=== PATIENT | male | born 1940 | race Caucasian/White ===

== ENCOUNTER 2018-12-12 00:58 | Emergency (ER) | payer OTHER, MEDICARE ==
[2018-12-12 01:59] LABS: Protime INR 1.13
[2018-12-12 02:00] LABS: Absolute Lymphocytes (CBC) 0.9 K/uL (0.7-4.9); Basophils % 0.8 % (0-1.3); Hematocrit 42.7 % (39.6-49.0); Lymphocytes % 10.9 % (15.3-44.8); MPV 8.5 fL (7.6-11.3); RBC Red Blood Cell Count 4.87 M/uL (4.33-5.43)
[2018-12-12 02:12] LABS: ALT/SGPT 13 U/L (12-78); AST/SGOT 10 U/L (15-37); Albumin 3.6 g/dL (3.4-5.0); Alkaline Phosphatase 87 U/L (45-117); BUN Blood Urea Nitrogen 21 mg/dL (7-18); Bicarbonate 29 mmol/L (21-32); Bilirubin Direct 0.2 mg/dL (0-0.2); Bilirubin Total 0.5 mg/dL (0.2-1.0); Glucose Level 101 mg/dL (74-106); Magnesium 2.3 mg/dL (1.8-2.4); NT PRO-BNP 811 pg/mL (<450); Potassium 4.5 mmol/L (3.5-5.1); Protein, Total 6.8 g/dL (6.4-8.2); Sodium Level 148 mmol/L (136-145); Troponin (Emerg Dept Use Only) < 0.02 ng/mL (0.0-0.045)
[2018-12-12] MEDS ORDERED: NA CHLORIDE 0.9% 1,000 ML ONE (02:18)
--- NOTE | 2018-12-12 02:24 | ER ---
Nurse's Notes [facility] Name: Quan Calixto Jr Age: 78 yrs Sex: Male : 1940 Arrival Date: 12/12/2018 Time: 01:02 Bed 3 Private MD: Diagnosis: Dehydration;Dementia in other diseases classified elsewhere Presentation: 12/12 01:00 Presenting complaint: EMS states: patient sat on the grass outside his house, flag down rr5 [place] [employer] we were on the next block for the lift assist. PD said the patient told them his is inside the house need medical emergency. the house is locked PD break in the house and they did not found anyone. they found out his is admitted here in the hospital right now. patient is altered oriented to himself known case of Alzheimer's and dementia. 01:00 Transition of care: patient was not received from another setting of care. Onset of rr5 symptoms was December 12, 2018. Risk Assessment: Do you want to hurt yourself or someone else? Patient reports no desire to harm self or others. Initial Sepsis Screen: Does the patient meet any 2 criteria? No. Patient's initial sepsis screen is negative. Does the patient have a suspected source of infection? No. Patient's initial sepsis screen is negative. Note labetalol given for the BP 224/110 then rechecked 150/84mmHg. Care prior to arrival: Medication(s) given: labetalol 10 mg/IV. 01:00 Method Of Arrival: EMS: [facility] rr5 01:00 Acuity: SIDRA 2 rr5 Historical: - Allergies: 01:00 Unable to obtain; rr5 - Home Meds: 01:00 Unable to obtain [Active]; rr5 - PMHx: 01:00 Unable to obtain; rr5 - PSHx: 01:00 Unable to obtain; rr5 - Immunization history:: Adult Immunizations unknown. - Social history:: Smoking status: unknown. - Ebola Screening: : Unable to complete screening because. Screenin:10 VAN Screening: Arm Drift: Patient shows no arm weakness. Patient is VAN negative. rr5 01:27 Abuse screen: Denies threats or abuse. Denies injuries from another. Nutritional rr5 screening: No deficits noted. Tuberculosis screening: No symptoms or risk factors identified. Fall Risk Secondary diagnosis (15 points) Alzheimer's, dementia, IV access (20 points). Mental Status- Overestimates/Forgets Limitations (15 pts.). Total Mckenzie Fall Scale indicates High Risk Score (45 or more points). Fall prevention measures have been instituted. Side Rails Up X 2 Placed Close to Nursing Station Frequent Obs/Assessments Occuring As available patient and family educated on Fall Prevention Program and Strategies. Assessment: 01:00 General: Appears in no apparent distress. comfortable, Behavior is calm, cooperative. rr5 Pain: Denies pain. Unable to use pain scale. Neuro: Level of Consciousness is awake, alert, obeys commands, confused, Oriented to person, Communications Consultant are equal bilaterally Moves all extremities. Full function Speech is normal, Facial symmetry appears normal, Pupils are PERRLA. Cardiovascular: Capillary refill < 3 seconds Patient's skin is warm and dry. Respiratory: Airway is patent Respiratory effort is even, unlabored, Respiratory pattern is regular, symmetrical. GI: No signs and/or symptoms were reported involving the gastrointestinal system. : No signs and/or symptoms were reported regarding the genitourinary system. : No signs and/or symptoms were reported regarding the genitourinary system. EENT: No signs and/or symptoms were reported regarding the EENT system. Derm: Skin is intact, Skin temperature is warm. Musculoskeletal: Circulation, motion, and sensation intact. Capillary refill < 3 seconds. 01:20 Reassessment: ED provider talked to patients and informed the patient status. rr5 01:55 Reassessment: Patient appears in no apparent distress at this time. eyes closed rr5 breathing spontaneously at room air. awaiting for result. 02:35 Reassessment: Patient appears in no apparent distress at this time. with order by ED rr5 provider.for discharge after fluid bolus. 03:20 Reassessment: Patient appears in no apparent distress at this time. fluid infusion rr5 consumed and terminated. patient assisted going to his in 2 nd floor via wheelchair. as verbalized by the his this is not the first time happened to him like this. discharge instruction given and explained to without complaints made. Vital Signs: 01:00 BP 157 / 105; Pulse 70; Resp 17; Pulse Ox 100% ; Weight 81.65 kg; rr5 01:00 Temp 97.8; rr5 01:49 BP 140 / 86; Pulse 62; Resp 18; Pulse Ox 100% on R/A; ea 02:32 BP 159 / 90; Pulse 60; Resp 16; Pulse Ox 98% ; rr5 03:23 BP 149 / 75; Pulse 62; Resp 16; Temp 97.9; Pulse Ox 98% ; rr5 Conrad Coma Score: 01:00 Eye Response: spontaneous(4). Verbal Response: confused(4). Motor Response: obeys rr5 commands(6). Total: 14. ED Course: 01:00 Maintain EMS IV. Dressing intact. Good blood return noted. Site clean \T\ dry. Gauge \T\ rr 5 site: G18 at right FA. 01:02 Patient arrived in ED. rr5 01:05 Murali Bernal PA is PHCP. jr8 01:05 Patient has correct armband on for positive identification. Placed in gown. Bed in low rr5 position. Call light in reach. Side rails up X2. playground monitor on. Pulse ox on. NIBP on. 01:06 Star Parham MD is Attending Physician. jr8 01:09 Triage completed. rr5 01:10 Arm band placed on right wrist. EKG completed in triage. Results shown to MD. rr5 01:11 George Lauren, RN is Primary Nurse. rr5 03:23 No provider procedures requiring assistance completed. IV discontinued, intact, rr5 bleeding controlled, No redness/swelling at site. Pressure dressing applied. 06:26 XRAY Chest (1 view) In Process Unspecified. EDMS Administered Medications: 02:23 Drug: NS 0.9% 1000 ml Route: IV; Rate: 1000 ml; Site: right forearm; rr5 03:15 Follow up: Response: No adverse reaction; IV Status: Completed infusion; IV Intake: rr5 1000ml Point of Care Testing: Blood Glucose: 01:15 Blood Glucose: 110 mg/dL; rr5 Ranges: Intake: 03:15 IV: 1000ml; Total: 1000ml. rr5 Outcome: 02:23 Discharge ordered by . jr8 03:23 Discharged to assisted going to his in 2nd floor. rr5 03:23 Condition: stable 03:23 Discharge instructions given to family, Instructed on discharge instructions, follow up and referral plans. Demonstrated understanding of instructions, follow-up care. 03:27 Patient left the ED. rr5 Signatures: Dispatcher [employer] EDMS Murali Bernal PA PA jr8 Ana Paula Saul, RN RN George Villarreal RN RN rr5 Corrections: (The following items were deleted from the chart) 02:33 02:32 BP 159 / 0; Pulse 60bpm; Resp 16bpm; Pulse Ox 98%; rr5 rr5
--- NOTE | 2018-12-12 02:25 | EDPHYS ---
Physician Documentation [facility] Name: Quan Calixto Jr Age: 78 yrs Sex: Male : 1940 Arrival Date: 12/12/2018 Time: 01:02 Bed 3 Private MD: ED Physician Star Parham HPI: 12/12 01:34 This 78 yrs old Male presents to ER via EMS with complaints of Altered Mental jr8 Status. 01:34 Onset: The symptoms/episode began/occurred acutely, today. Possible causes: unknown. jr8 Associated signs and symptoms: The patient has no apparent associated signs or symptoms. Current symptoms: In the emergency department the patient's symptoms are unchanged from the initial presentation. Patient's baseline: unknown. It is unknown whether or not the patient has had similar symptoms in the past. It is unknown whether or not the patient has recently seen a physician. Patient brought in by EMS after police called them out for altered mental status patient. Stated that he has early onset dementia. Patient's currently admitted to this hospital. was contacted and stated that he does have dementia history and has had steady decline as of lately. No one at home to take care of him at this moment. Patient currently alert to person only. Goes between lucid and confused moments but denies any pain, shortness of breath, or any other symptoms . Historical: - Allergies: 01:00 Unable to obtain; rr5 - Home Meds: 01:00 Unable to obtain [Active]; rr5 - PMHx: 01:00 Unable to obtain; rr5 - PSHx: 01:00 Unable to obtain; rr5 - Immunization history:: Adult Immunizations unknown. - Social history:: Smoking status: unknown. - Ebola Screening: : Unable to complete screening because. ROS: 01:34 Eyes: Negative for injury, pain, redness, and discharge, ENT: Negative for injury, jr8 pain, and discharge, Neck: Negative for injury, pain, and swelling, Cardiovascular: Negative for chest pain, palpitations, and edema, Respiratory: Negative for shortness of breath, cough, wheezing, and pleuritic chest pain, Abdomen/GI: Negative for abdominal pain, nausea, vomiting, diarrhea, and constipation, Back: Negative for injury and pain, MS/Extremity: Negative for injury and deformity, Skin: Negative for injury, rash, and discoloration, Neuro: Negative for headache, weakness, numbness, tingling, and seizure. Exam: 01:34 Eyes: Pupils equal round and reactive to light, extra-ocular motions intact. Lids and jr8 lashes normal. Conjunctiva and sclera are non-icteric and not injected. Cornea within normal limits. Periorbital areas with no swelling, redness, or edema. ENT: Nares patent. No nasal discharge, no septal abnormalities noted. Tympanic membranes are normal and external auditory canals are clear. Oropharynx with no redness, swelling, or masses, exudates, or evidence of obstruction, uvula midline. Mucous membranes moist. Neck: Trachea midline, no thyromegaly or masses palpated, and no cervical lymphadenopathy. Supple, full range of motion without nuchal rigidity, or vertebral point tenderness. No Meningismus. Cardiovascular: Regular rate and rhythm with a normal S1 and S2. No gallops, murmurs, or rubs. Normal PMI, no JVD. No pulse deficits. Respiratory: Lungs have equal breath sounds bilaterally, clear to auscultation and percussion. No rales, rhonchi or wheezes noted. No increased work of breathing, no retractions or nasal flaring. Abdomen/GI: Soft, non-tender, with normal bowel sounds. No distension or tympany. No guarding or rebound. No evidence of tenderness throughout. Back: No spinal tenderness. No costovertebral tenderness. Full range of motion. Skin: Warm, dry with normal turgor. Normal color with no rashes, no lesions, and no evidence of cellulitis. MS/ Extremity: Pulses equal, no cyanosis. Neurovascular intact. Full, normal range of motion. Neuro: Awake and alert, GCS 15, oriented to person. Cranial nerves II-XII grossly intact. Motor strength 5/5 in all extremities. Sensory grossly intact. Cerebellar exam normal. Normal gait. Vital Signs: 01:00 BP 157 / 105; Pulse 70; Resp 17; Pulse Ox 100% ; Weight 81.65 kg; rr5 01:00 Temp 97.8; rr5 01:49 BP 140 / 86; Pulse 62; Resp 18; Pulse Ox 100% on R/A; ea 02:32 BP 159 / 90; Pulse 60; Resp 16; Pulse Ox 98% ; rr5 03:23 BP 149 / 75; Pulse 62; Resp 16; Temp 97.9; Pulse Ox 98% ; rr5 [place] Coma Score: 01:00 Eye Response: spontaneous(4). Verbal Response: confused(4). Motor Response: obeys rr5 commands(6). Total: 14. MDM: 01:06 Patient medically screened. [facility] 02:21 Data reviewed: vital signs, nurses notes, lab test result(s), EKG, radiologic studies, [facility] plain films, and as a result, I will discharge patient. Data interpreted: Pulse oximetry: on room air is 100 %. Interpretation: normal. Counseling: I had a detailed discussion with the patient and/or guardian regarding: the historical points, exam findings, and any diagnostic results supporting the discharge/admit diagnosis, lab results, radiology results, the need for outpatient follow up, a family practitioner, to return to the emergency department if symptoms worsen or persist or if there are any questions or concerns that arise at home. Response to treatment: patient is well hydrated. 12/12 01:06 Order name: Basic Metabolic Panel [facility] 12/12 01:06 Order name: CBC with Diff [facility] 12/12 01:06 Order name: LFT's [facility] 12/12 01:06 Order name: Magnesium [facility] 12/12 01:06 Order name: NT PRO-BNP [facility] 12/12 01:06 Order name: PT-INR [facility] 12/12 01:06 Order name: Troponin (emerg Dept Use Only) [facility] 12/12 02:13 Order name: Basic Metabolic Panel; Complete Time: 02:14 EDMS 12/12 02:13 Order name: Liver (Hepatic) Function; Complete Time: 02:14 EDOR 12/12 02:13 Order name: Troponin (Emerg Dept Use Only); Complete Time: 02:14 EDMS 12/12 02:13 Order name: NT PRO-BNP; Complete Time: 02:14 EDOR 12/12 02:13 Order name: Magnesium; Complete Time: 02:14 EDMS 12/12 02:20 Order name: CBC with Automated Diff; Complete Time: 02:21 EDOR 12/12 02:20 Order name: Protime (+INR); Complete Time: 02:21 EDOR 12/12 01:03 Order name: XRAY Chest (1 view) 12/12 01:06 Order name: EKG; Complete Time: 01:12/12 01:06 Order name: Cardiac monitoring; Complete Time: :12/12 01:06 Order name: EKG - Nurse/Tech; Complete Time: :12/12 01:06 Order name: IV Saline Lock; Complete Time: :12/12 01:06 Order name: Labs collected and sent; Complete Time: :12/12 01:06 Order name: O2 Per Protocol; Complete Time: :12/12 01:06 Order name: O2 Sat Monitoring; Complete Time: :12/12 01:06 Order name: Glucose Level; Complete Time: Administered Medications: 02:23 Drug: NS 0.9% 1000 ml Route: IV; Rate: 1000 ml; Site: right forearm; rr5 03:15 Follow up: Response: No adverse reaction; IV Status: Completed infusion; IV Intake: rr5 1000ml Point of Care Testing: Blood Glucose: :15 Blood Glucose: 110 mg/dL; rr5 Ranges: Critical Glucose Levels:Adult <50 mg/dl or >400 mg/dl <40 mg/dl or >180 mg/dl Disposition: 04:50 Co-signature as Attending Physician, Star Parham MD. rn Disposition: 12/12/18 02:23 Discharged to Home. Impression: Dehydration, Dementia in other diseases classified elsewhere. - Condition is Stable. - Discharge Instructions: Dehydration, Elderly. - Medication Reconciliation Form, Thank You Letter, Antibiotic Education, Prescription Opioid Use form. - Follow up: Private Physician; When: As needed; Reason: Recheck today's complaints, Continuance of care, Re-evaluation by your physician. - Problem is new. - Symptoms have improved. Signatures: Dispatcher [employer] Star Alcantara MD MD rn Roszak, Josh, PA PA jr8 George Lauren RN RN rr5 Corrections: (The following items were deleted from the chart) 02:24 02:21 Response to treatment: There is no appreciated change of the patient's symptoms jr8 at this time, jr8 03:27 02:23 12/12/2018 02:23 Discharged to Home. Impression: Dehydration; Dementia in other rr5 diseases classified elsewhere. Condition is Stable. Forms are Medication Reconciliation Form, Thank You Letter, Antibiotic Education, Prescription Opioid Use. Follow up: Private Physician; When: As needed; Reason: Recheck today's complaints, Continuance of care, Re-evaluation by your physician. Problem is new. Symptoms have improved. jr8
[2018-12-12 03:50] VITALS: BP 149/75; TEMP 97.9; O2SAT 98
--- NOTE | 2018-12-12 08:04 | RAD REPORT ---
EXAM DESCRIPTION: Charley Single View12/12/2018 1:11 am CLINICAL HISTORY: Shortness of breath COMPARISON: 2016 FINDINGS: Mild bilateral interstitial opacities appear unchanged and likely are chronic A lung consolidation is not noted. Heart is mildly enlarged
--- NOTE | 2018-12-12 11:32 | EKG ---
Test Date: 2018-12-12 Test Time: 01:14:23 Physician Liaison: RR MEASUREMENT RESULTS: Intervals: Rate: 62 NE: 160 QRSD: 102 QT: 430 QTc: 436 [place]: P: 59 NE: 160 QRS: 24 T: 63 INTERPRETIVE STATEMENTS: Normal sinus rhythm Normal ECG Compared to ECG 07/23/2015 13:50:16 Sinus arrhythmia no longer present Electronically Signed On 12-12-18 11:30:43 CDT by Daryl Cloud
== END 2018-12-12 03:27 | disposition home or self-care (01) ==
LOC: ER 00:58
DX: E86.0 Dehydration (principal); F02.80 Dementia in other diseases classified elsewhere, unspecified severity, without behavioral disturbance, psychotic disturbance, mood disturbance, and anxiety
CPT/HCPCS: 93005; 85025; 80048; 36415; 83735; 85610; 82962; 80076; 84484; 83880; 71045; 96360; 99284; J7030